=== PATIENT | female | born 1965 | race Two or more races ===

== ENCOUNTER 2025-02-24 06:49 | Outpatient (CLI) | payer OTHER ==
[~2025-02-24] VITALS: Ht 170.2 cm; Wt 66.7 kg
[~2025-02-24 06:49] MED LIST: CIPRO500 MG PO; ELMIRON100 MG; MEDROLPACK PO; PEPCID40 MG PO; TUSSI PRES-B L120 M1 PO; ZITHROMAX TRI-500 MG PO; ZOFRAN8 MG PO
[2025-02-24 08:36] VITALS: BP 126/85; O2SAT 100
[2025-02-24 08:46] VITALS: BP 131/80; O2SAT 100
[2025-02-24 09:06] VITALS: BP 121/84; O2SAT 100
[2025-02-24 09:50] VITALS: BP 119/76; O2SAT 100
== END 2025-02-24 16:19 | disposition home or self-care (01) ==
LOC: SONOGRAMA 06:49
PROVIDERS: ATTEND Specialist
DX: R59.0 Localized enlarged lymph nodes (principal)